=== PATIENT | male | born 1940 | race Caucasian/White ===

== ENCOUNTER 2017-01-08 15:05 | Inpatient (IN) | payer MEDICARE, OTHER ==
[~2017-01-08] VITALS: Ht 175.3 cm; Wt 92.3 kg
[~2017-01-08 15:05] MED LIST: ALDACTONE100 MG PO; ASPIRIN81 MG PO; ATORVASTATIN CA40 MG PO; BUMEX1 MG PO; COREG 6.25MG6.25 MG PO; FEOSOL325 MG SC; FOLIC ACID1 MG PO; LACTULOSE10 G/15 ML PO; LORATADINE10 MG PO; MAG-OXIDE 400M400 MG PO; NAMENDA 10MG TA10 MG PO; NOVOLOG VI100 UNIT/1 SC; PROTONIX 40MG T40 MG PO; RANEXA500 MG PO; XIFAXAN550 M1 PO; ZINC SULFATE220 M1 PO
[2017-01-08 16:17] LABS: BASOPHIL 0.4 % (0-2); EOSINOPHIL 1.6 % (0-7); HCT 35.5 % (42.0-52.0); HGB 12.7 g/dl (13.2-18.0); LYMPHOCYTE 17.3 % (15-48); MCH 36.7 pg (25.0-31.0); MCHC 35.8 g/dL (32.0-36.0); MCV 102.6 fL (78.0-100.0); MPV 12.2 fL (6.0-9.5); NEUTROPHIL 69.7 % (41-80); PLT 57 K/uL (150-400); RBC 3.46 M/uL (4.70-6.00); RDW 13.4 % (11.5-14.0); WBC 4.9 K/uL (4.0-10.5)
[2017-01-08 16:28] LABS: LACTIC ACID 4.3 mmol/L (0.5-2.2)
[2017-01-08 16:29] LABS: ALBUMIN 4.1 g/dL (3.4-4.8); BILIRUBIN - TOTAL 1.1 mg/dL (0.1-1.0); CREATININE 1.4 mg/dL (0.7-1.2); GLOBULIN (CALCULATION) 2.9 g/dL (2.2-4.2); POTASSIUM 4.9 mmol/L (3.5-5.1)
[2017-01-08 18:18] LABS: BILIRUBIN NEGATIVE (NEGATIVE); BLOOD NEGATIVE Ery/uL (NEGATIVE); CLARITY CLEAR (CLEAR); COLOR YELLOW (YELLOW); GLUCOSE (U) 3+ mg/dL (NORMAL); KETONE (U) NEGATIVE (NEGATIVE); LEUKOCYTES NEGATIVE Leu/uL (NEGATIVE); NITRITE NEGATIVE (NEGATIVE); PROTEIN NEGATIVE (NEGATIVE); SPECIFIC GRAVITY <=1.005 (1.001-1.030); UROBILINOGEN 0.2 mg/dL (0.2-1.0)
[2017-01-09 03:42] LABS: HGB 12.5 g/dl (13.2-18.0); MCH 36.7 pg (25.0-31.0); MCHC 35.7 g/dL (32.0-36.0); MCV 102.6 fL (78.0-100.0); MPV 11.3 fL (6.0-9.5); RBC 3.41 M/uL (4.70-6.00); RDW 13.5 % (11.5-14.0)
[2017-01-09 03:58] LABS: CREATININE 1.2 mg/dL (0.7-1.2); POTASSIUM 4.3 mmol/L (3.5-5.1)
[2017-01-10 05:11] LABS: CREATININE 1.2 mg/dL (0.7-1.2); POTASSIUM 4.4 mmol/L (3.5-5.1)
[2017-01-11 05:27] LABS: CREATININE 1.3 mg/dL (0.7-1.2); POTASSIUM 4.3 mmol/L (3.5-5.1)
[2017-01-11] MEDS ORDERED: COREG 3.125M3.125 MG PO (12:50)
[2017-01-11] MEDS ORDERED: HUMALOG100 UNIT/1 SC (12:50)
[2017-01-11] MEDS ORDERED: SYNTHROID25 MCG PO (12:51)
[2017-01-11] MEDS ORDERED: GARLIC OIL1000 MG PO (12:51)
[2017-01-11] MEDS ORDERED: LOVAZA1 GM PO (12:51)
[2017-01-11] MEDS ORDERED: BENTYL10 MG PO (12:51)
[2017-01-11] MEDS ORDERED: GLYCOLAX527 GM PO (12:52)
--- NOTE | 2017-01-11 13:26 | NUR ---
REVIEWED DISCHARGE INSTRUCTIONS, INSULIN CHANGES AND APPT INFORMATION WITH PT AND SON AND DIL ALL VERBALIZED UNDERSTANDING - ASSISTED TO W/C AND HELPED TO POV
[2017-01-11] MEDS ORDERED: LANTUS **100 UNITS/ SC (14:42)
== END 2017-01-11 13:24 | disposition home or self-care (01) | DRG 292 ==
LOC: FER 15:05 → FICU 18:15 → FMS 01-10 18:30
PROVIDERS: Internal Medicine; ADMIT Internal Medicine
DX: I50.31 Acute diastolic (congestive) heart failure (principal); E87.2 Acidosis; E87.0 Hyperosmolality and hypernatremia; K76.6 Portal hypertension; E11.65 Type 2 diabetes mellitus with hyperglycemia; K74.60 Unspecified cirrhosis of liver; I25.10 Atherosclerotic heart disease of native coronary artery without angina pectoris; K75.81 Nonalcoholic steatohepatitis (NASH); Z95.1 Presence of aortocoronary bypass graft; I73.9 Peripheral vascular disease, unspecified; Z79.4 Long term (current) use of insulin
CPT/HCPCS: 36415; 36600; 71010; 80048; 80053; 81003; 82009; 82140; 82803; 82962; 83036; 83605; 83880; 85025; 93005; J1815; J1940